=== PATIENT | male | born 2000 | race Caucasian/White ===

== ENCOUNTER 2023-07-10 09:44 | Emergency (ER) | payer SELFPAY ==
[2023-07-10 09:52] VITALS: BP 190/114; PULSE 62; RESP 18; TEMP 36.7; O2SAT 100; BMI 30.2
--- NOTE | 2023-07-10 10:04 | XRR_ITS ---
PROCEDURE INFORMATION: Exam: XR Chest Exam date and time: 07/10/2023 10:14 AM Age: 22 years old Clinical indication: Cough; Additional info: Cough, congestion TECHNIQUE: Imaging protocol: Radiologic exam of the chest. Views: 1 view. COMPARISON: No relevant prior studies available. FINDINGS: Lungs: Unremarkable. No consolidation. Pleural spaces: Unremarkable. No pleural effusion. No pneumothorax. Heart/Mediastinum: Unremarkable. No cardiomegaly. Bones/joints: Unremarkable for age. XR/XR chest 1V portable [id number] IMPRESSION: Negative chest exam.
[2023-07-10 10:17] VITALS: O2SAT 96
--- NOTE | 2023-07-10 10:22 | ED_ITS ---
HPI - COVID General: Chief Complaint: COVID symptoms Stated Complaint: covid symptoms Time Seen by Provider: 07/10/23 09:46 History of Present Illness: Patient is a 22-year-old man that presents to the emergency department with complaints of cough, fatigue, nausea. Onset of symptoms 3 days ago. Patient denies fever or chills He does report decreased appetite Patient is not immunized against COVID and denies any known COVID exposure. COVID 19 common symptoms: positive non-productive cough, fatigue and nasal congestion; negative fever(s), chills, productive cough, dyspnea, headache(s), throat pain, nausea, vomiting or diarrhea COVID 19 other sytmptoms: negative chest pain, confusion or dizziness COVID Results: SARS-CoV-2 Antigen (Rapid) positive (Negative) H 07/10/23 10:1 3 Review of Systems General: Reports: 10 or more systems reviewed and unremarkable except in HPI and below Const: Reports: change in appetite, fatigue and malaise; Denies: fever(s), chills or change in weight Eyes: Denies: change in vision, eye discomfort, eye discharge or eye redness ENMT: Reports: nasal congestion; Denies: throat pain, enlarged tonsils, odynophagia, hoarseness, ear or mastoid pain, ear discharge, change in hearing, tinnitus, nasal discharge, post nasal drip or sinus pain Card: Denies: chest pain, palpitations, irregular heart rhythm, edema, dyspnea on exertion, orthopnea or leg pain with exertion Resp: Reports: non-productive cough; Denies: dyspnea, productive cough, wheezing, stridor or chest congestion GI: Denies: abdominal pain, nausea, vomiting, dysphagia, diarrhea, constipation, bloating, GI cramping or hematochezia : Denies: flank pain, dysuria, urinary frequency, urinary urgency, urinary hesitancy, oliguria or hematuria Musc: Denies: neck pain, back pain, extremity pain, joint pain, joint swelling, joint redness, joint warmth or muscle weakness Skin/Breast: Denies: rash, pruritus, erythema, photosensitivity or new lesions Neuro: Denies: headache(s), numbness in extremities, weakness in extremities, sensory changes, lack of coordination, difficulty walking, frequent falls, dizziness, confusion, Slurred speech present, difficulty communicating thoughts, seizure-like activity or involuntary movements Endo: Denies: polyuria, polydipsia or tired all the time Fito/Lymph: Denies: easy bruising or easy bleeding Physical Exam Const: COMMON NORMALS: no acute distress, patient oriented x3 and alert GENERAL APPEARANCE: cooperative ORIENTATION/CONSCIOUSNESS: Yes awake, Yes oriented to person, Yes oriented to place and Yes oriented to time HENMT: COMMON NORMALS: normocephalic and atraumatic HEAD & SCALP: normocephalic and atraumatic FACE & SINUS: normal facial exam MOUTH: Normal oral and palatal mucosa present THROAT: posterior oropharynx normal Eye: COMMON NORMALS: Equal, round and reactive pupils present, EOMs intact bilaterally, conjunctivae normal and no scleral icterus GENERAL EYE: appearance normal, both eyes and all related structures ALIGNMENT: Yes alignment normal PERIORBITAL: periorbital findings normal CONJUNCTIVA: Yes conjunctivae normal PUPIL: Yes Equal, round and reactive pupils present Neck/C-Spine: COMMON NORMALS: full ROM GENERAL: Yes normal visual inspection Lymph: LYMPHATIC: no lymphadenopathy noted Chest: COMMONS NORMALS: normal inspection of the chest Breast/axilla inspection: Yes no chest deformity, asymmetry, normal contours, no nodules, mas ses, tenderness Resp: COMMON NORMALS: normal respiratory effort, No retractions, No use of accessory muscles and clear to auscultation bilaterally EFFORT & INSPECTION: Yes able to speak in complete sentences and Yes symmetric chest movement AUSCULTATION: clear to auscultation bilaterally Cardio: COMMON NORMALS: regular rate, regular rhythm and Peripheral pulses 2+ throughout RATE: regular rate RHYTHM: regular rhythm PERIPHERAL PULSES: Peripheral pulses 2+ throughout GI: COMMON NORMALS: Normal to inspection, nondistended, normoactive bowel sounds present, Soft to palpation, non-tender and No hepatosplenomegaly present INSPECTION: Yes normal to inspection AUSCULTATION: Yes normoactive bowel sounds PALPATION: Yes Soft to palpation and Yes No hepatosplenomegaly present RECTAL EXAM: Yes deferred Extremity: COMMON NORMALS: normal to inspection GENERAL: Yes normal exam except as noted Neuro: COMMON NORMALS: patient oriented x3 SENSORIUM/ORIENTATION: Yes alert, Yes oriented to person, Yes oriented to place and Yes oriented to time CRANIAL NERVES: Yes CN normal except as noted Psych: COMMON NORMALS: mental status grossly normal, Normal thought process present, cooperative, activity/motor behavior normal, denies homicidal ideation and denies suicidal ideation THOUGHT PROCESS: Normal thought process present Skin: COMMON NORMALS: no rashes or lesions noted, no wounds and turgor normal GENERAL SKIN EXAM: no rashes or lesions noted and turgor normal Course Vital Signs: Vital signs: Vital Signs Temperature 98.1 F 07/10/23 09:52 Pulse Rate 62 07/10/23 09:52 Respiratory Rate 18 07/10/23 09:52 Blood Pressure 190/114 07/10/23 09:52 Pulse Oximetry 96 07/10/23 10:17 Oxygen Delivery Me thod Room Air 07/10/23 10:17 MDM - COVID Medical Decision Making Patient underwent XR and COVID testing while in isolation. He is COVID-positive. Chest x-ray reveals no pneumonias. Patient is going to be discharged home with instructions to quarantine. I am advising him on supportive measures at home. Unfortunately he exceeds the timeframe on when to start Paxlovid. Patient provided instructions verbally and written. All questions answered Lab Data Radiology Impressions Chest X-Ray 07/10/23 10:04 IMPRESSION: Negative chest exam. Laboratory Results SARS-CoV-2 Ag (Rapid) positive (Negative) H 07/10/23 10:13 SARS-CoV-2 Antigen (Rapid) positive (Negative) H 07/10/23 10:1 3 Discharge Plan Discharge Patient Disposition: Home Clinical Impression: COVID Condition: Stable Discharge Orders: Discharge ED (Routine); Ordered 07/10/23 Ordered By: Chance Martini Discharge Diet: Advance as tolerated Discharge Activity: Resume usual activity Patient Instructions: COVID-19 (Coronavirus Disease 2019) (ED), COVID-19: Slow the Coronavirus Spread (ED), How to Recover from COVID-19 at Home (ED), Social Distancing Guidelines for COVID-19 (ED), Pain Management Activity Restrictions/Additional Instructions: You need to observe quarantine rules which is 5 days starting the first full day after illness. Based on our discussion that would be Wednesday is day 1. This means you need to quarantine until 07/14/2023. If you are still having symptoms of fever or chills on 07/14/2023, you need to continue to quarantine. Supportive measures for managing COVID at home have been outlined in the pamphlets included here. Need to return to the emergency department if you develop any worsening shortness of breath, chest pain or fevers that do not respond to Tylenol or Motrin. Stand Alone Forms: Work/School Release Coding Level of Care Code ED Installation And Service Technician for [facility] Leslie
[2023-07-10 11:02] LABS: SARS Covid-2 Antigen positive (Negative)
== END 2023-07-10 11:30 | disposition home or self-care (01) ==
PROVIDERS: Emergency Provider Nurse Practitioner
DX: U07.1 COVID-19 (principal)
CPT/HCPCS: 71045; 87426; 99284

== ENCOUNTER 2023-12-26 19:27 | Emergency (ER) | payer SELFPAY ==
[2023-12-26 19:33] VITALS: BP 156/99; PULSE 74; RESP 18; TEMP 36.7; O2SAT 98
--- NOTE | 2023-12-26 19:34 | XRR_ITS ---
PROCEDURE INFORMATION: Exam: XR Chest Exam date and time: 12/26/2023 7:48 PM Age: 23 years old Clinical indication: Patient HX: Fever; Chills; Body aches; RT side chest pain; Additional info: Fever chills TECHNIQUE: Imaging protocol: Radiologic exam of the chest. Views: 1 view. COMPARISON: CR (CHEST, ) 07/10/2023 10:14 AM FINDINGS: Lungs: Unremarkable. No consolidation. Pleural spaces: Unremarkable. No pleural effusion. No pneumothorax. Heart/Mediastinum: Unremarkable. No cardiomegaly. Bones/joints: Unremarkable. XR/XR chest 1V portable [id number] IMPRESSION: No acute findings.
--- NOTE | 2023-12-26 19:47 | ED_ITS ---
HPI - Abdominal Pain 2 General: Chief Complaint: Abdominal Pain Stated Complaint: n/v,dizzy,body aches,chills Time Seen by Provider: 12/26/23 19:46 History of Present Illness: 23-year-old male patient comes in today for complaints of cough, congestion, and bodyaches for the last 4 days. Patient appears mildly unwell but nontoxic. Respirations are even lungs are clear to auscultation. Skin is warm and dry. Patient reports no chronic medical problems. Review of Systems 2 General: Reports: 10 or more systems reviewed and unremarkable except in HPI and below Physical Exam 2 Const: COMMON NORMALS: alert HENMT: COMMON NORMALS: normocephalic HEAD & SCALP: normocephalic MOUTH: Normal oral and palatal mucosa present Resp: COMMON NORMALS: normal respiratory effort and clear to auscultation bilaterally AUSCULTATION: clear to auscultation bilaterally Cardio: COMMON NORMALS: regular rate and regular rhythm RATE: regular rate RHYTHM: regular rhythm GI: AUSCULTATION: Yes normoactive bowel sounds PALPATION: No Tenderness to palpation present (GI) Back/Pelvis: COMMON NORMALS: thoracic and lumbar spine normal to inspection Extremity: COMMON NORMALS: full ROM Neuro: SENSORIUM/ORIENTATION: Yes alert Skin: COMMON NORMALS: turgor normal GENERAL SKIN EXAM: turgor normal Course 2 Vital Signs: Vital signs: Vital Signs Temperature 98.1 F 12/26/23 19:33 Pulse Rate 87 12/26/23 19:50 Respiratory Rate 18 12/26/23 19:50 Blood Pressure 156/99 12/26/23 19:33 Pulse Oximetry 98 12/26/23 19:50 Oxygen Delivery Me thod Room Air 12/26/23 19:50 MDM - Abdominal Pain Medical Decision Making 23-year-old male patient comes in today for complaints of flulike symptoms for last 4 days. Patient appears nontoxic. Patient appears in no acute distress. Respirations are even lungs are clear to auscultation. Skin is warm and dry. Vital signs are normal except for elevation in blood pressure 156 systolic. Differential diagnosis includes but not limited to pneumonia, influenza, COVID, strep pharyngitis, dehydration. Chest x-ray was normal. CBC CMP was unremarkable. Patient was negative for influenza and COVID. Believe patient probably has a flulike syndrome that has caused some bronchitis. Will give 1 dose of dexamethasone 10 mg. Patient be started on some doxycycline for the next 7 days. Recommended fluids rest and follow-up. Patient reported understanding and agreed to plan. Lab Data 12/26/23 20:45 12/26/23 20:45 Labs/Radiology: Radiology Impressions Chest X-Ray 12/26/23 19:34 IMPRESSION: No acute findings. Laboratory Results WBC 10.34 10^3/uL (3.29-11.43) 12/26/23 20:45 RBC 4.98 10^6/uL (3.85-5.65) 12/26/23 20:45 Hgb 14.50 g/dL (11.27-16.99) 12/26/23 20:45 Hct 41.5 % (37-53) 12/26/23 20:45 MCV 83.3 fl (82-101) 12/26/23 20:45 MCH 29.1 pg (27-33) 12/26/23 20:45 MCHC 34.9 g/dL (30-55) 12/26/23 20:45 RDW 12.1 % (12.1-15.1) 12/26/23 20:45 Plt Count 198 10^3/cmm (157-399) 12/26/23 20:45 MPV 10.5 fL (7.4-10.4) H 12/26/23 20:45 Neut % (Auto) 75.8 % 12/26/23 20:45 Lymph % (Auto) 15.4 % 12/26/23 20:45 Carver % (Auto) 8.4 % 12/26/23 20:45 Eos % (Auto) 0.1 % 12/26/23 20:45 Baso % (Auto) 0.1 % 12/26/23 20:45 Neut # (Auto) 7.84 10^3/uL (1.8-7.7) H 12/26/23 20:45 Lymph # (Auto) 1.6 10^3/uL (0.8-4.8) 12/26/23 20:45 Carver # (Auto) 0.9 10^3/uL (0.2-0.9) 12/26/23 20:45 Eos # (Auto) 0.0 10^3/uL (0.0-0.8) 12/26/23 20:45 Baso # (Auto) 0.0 10^3/uL (0.0-0.1) 12/26/23 20:45 Nucleated RBC % (auto) 0 % 12/26/23 20:45 Nucleated RBCs # 0.0 /100WBC 12/26/23 20:45 Sodium 135 mmol/L (136-145) L 12/26/23 20:45 Potassium 3.6 mmol/L (3.5-5.1) 12/26/23 20:45 Chloride 97 mmol/L (98-107) L 12/26/23 20:45 Carbon Dioxide 25 mmol/L (22-29) 12/26/23 20:45 Anion Gap 16.6 (5-19) 12/26/23 20:45 BUN 13 mg/dL (6-20) 12/26/23 20:45 Creatinine 0.7 mg/dL (0.7-1.2) 12/26/23 20:45 GFR Calculation 137.4 mL/min (90-130) H 12/26/23 20:45 Glucose 101 mg/dL (65-115) 12/26/23 20:45 Calculated Osmolality 280 mOsm/kg (285-295) L 12/26/23 20:45 Calcium 9.0 mg/dL (8.5-10.5) 12/26/23 20:45 Total Bilirubin 0.4 mg/dL (0.15-1.2) 12/26/23 20:45 AST 39 U/L (0-40) 12/26/23 20:45 ALT 23 U/L (0-41) 12/26/23 20:45 Alkaline Phosphatase 78 U/L (40-130) 12/26/23 20:45 Total Protein 8.0 g/dL (6.6-8.7) 12/26/23 20:45 Albumin 4.5 g/dL (3.5-5.2) 12/26/23 20:45 Globulin 3.5 g/dL (1.3-4.6) 12/26/23 20:45 Influenza Type A Ag negative (Negative) 12/26/23 19:50 Influenza Type B Ag negative (Negative) 12/26/23 19:50 SARS-CoV-2 Ag (Rapid) negative (Negative) 12/26/23 19:50 Group A Strep Rapid Negative (Negative) 12/26/23 20:25 All radiology interpretation(s) finalized by discharge Discharge Plan Discharge Patient Disposition: Home Clinical Impression: Bronchitis Condition: Stable Prescriptions: New doxycycline hyclate 100 mg capsule 100 mg PO BID 7 Days Qty: 14 0RF Discharge Orders: Discharge ED (Routine); Ordered 12/26/23 Ordered By: Jack Rhoades Discharge Diet: Usual diet Discharge Activity: Increase activity as tolerated Patient Instructions: Acute Bronchitis (ED) Activity Restrictions/Additional Instructions: Home and rest drink plenty water and fluids. Use acetaminophen ibuprofen for pain and discomfort. Use [id number] cough medicine as needed for cough. Follow-up with primary care for further instructions. Return to ED for new concerns. Coding Level of Care Code ED Intensive Care Specialist for Nery Leslie
[2023-12-26 19:50] VITALS: PULSE 87; RESP 18; O2SAT 98
[2023-12-26 20:23] LABS: Influenza A by IFA negative (Negative); Influenza B by IFA negative (Negative); SARS Covid-2 Antigen negative (Negative)
[2023-12-26 20:47] LABS: Rapid Strep A Test Negative (Negative)
[2023-12-26 20:55] LABS: Basophils % 0.1 %; Eosinophils % 0.1 %; Hematocrit 41.5 % (37-53); Lymphocytes # 1.6 10^3/uL (0.8-4.8); Lymphocytes % 15.4 %; Mean Corpuscular HGB Conc 34.9 g/dL (30-55); Mean Corpuscular Hemoglobin 29.1 pg (27-33); Mean Corpuscular Volume 83.3 fl (82-101); Mean Platelet Volume 10.5 fL (7.4-10.4); Monocytes # 0.9 10^3/uL (0.2-0.9); Monocytes % 8.4 %; Neutrophils # 7.84 10^3/uL (1.8-7.7); Neutrophils % 75.8 %; Nucleated Red Blood Cells % 0 %; Platelet Count 198 10^3/cmm (157-399); Red Blood Count 4.98 10^6/uL (3.85-5.65); Red Cell Distribution Width 12.1 % (12.1-15.1); White Blood Count 10.34 10^3/uL (3.29-11.43)
[2023-12-26 21:18] LABS: Alanine Aminotransferase 23 U/L (0-41); Albumin Level 4.5 g/dL (3.5-5.2); Alkaline Phosphatase 78 U/L (40-130); Anion Gap 16.6 (5-19); Aspartate Amino Transferase 39 U/L (0-40); Blood Urea Nitrogen 13 mg/dL (6-20); Carbon Dioxide 25 mmol/L (22-29); Chloride 97 mmol/L (98-107); Globulin 3.5 g/dL (1.3-4.6); Glomerular Filtration Rate 137.4 mL/min (90-130); Glucose 101 mg/dL (65-115); Osmolality Calculated 280 mOsm/kg (285-295); Potassium 3.6 mmol/L (3.5-5.1); Sodium 135 mmol/L (136-145); Total Bilirubin 0.4 mg/dL (0.15-1.2)
[2023-12-26] MEDS: dexamethasone 10 mg/mL INJ IM (21:48)
[2023-12-26] MEDS: doxycycline 100 mg Tablet PO (21:49)
[2023-12-26 21:50] VITALS: BP 118/75; PULSE 87; RESP 18; O2SAT 99
== END 2023-12-26 21:52 | disposition home or self-care (01) ==
PROVIDERS: Emergency Medicine; Emergency Provider Nurse Practitioner Family
DX: J40 Bronchitis, not specified as acute or chronic (principal); Z11.52 Encounter for screening for COVID-19
CPT/HCPCS: 36415; 71045; 80053; 85025; 87081; 87426; 87804; 87880; 96372; 99284; J1100